=== PATIENT | male | born 1965 | race Caucasian/White ===

== ENCOUNTER 2019-06-11 19:13 | Emergency (ER) | payer MEDICARE, OTHER ==
--- NOTE | 2019-06-11 19:33 | UC ---
Respiratory Complaint HPI - HPI Summary HPI Summary: 54 yo male presents with sore throat and cough for the last 3 days. He tells me that about 3 days ago he developed a dry irritating cough that has persisted. 2 days ago developed a sore throat that seems to be getting worse. Today developed a fever. He has been taking OTC cold medicine for his symptoms with little relief. He does not smoke. Denies sinus symptoms, SOB, chest pain, rash, abdominal pain, n/v - History of Current Complaint Stated Complaint: COUGH Time Seen by Provider: 06/11/19 19:32 Hx Obtained From: Patient Onset/Duration: Gradual Onset Severity Initially: Mild Severity Currently: Moderate Pain Intensity: 6 Pain Scale Used: 0-10 Numeric Character: Cough: Nonproductive - Allergies/Home Medications Allergies/Adverse Reactions: Allergies Allergy/AdvReac Type Severity Reaction Status Date / Time atorvastatin [From Lipitor] Allergy Muscle Ache Verified 06/11/19 19:35 Home Medications: Home Medications Acetaminophen [Tylenol Extra Strength] 1,000 mg PO Q6H PRN 06/11/19 [History Confirmed 06/11/19] Acetaminophen/Dextromethorphan [Cold & Cough Daytime 1000-30 mg/30Ml] 1 liq PO ONCE 06/11/19 [History Confirmed 06/11/19] Diphenhydra/Phenyleph/Acetamin [Theraflu Severe Cold & Co 25-10-650 mg] 1 pow PO BEDTIME 06/11/19 [History Confirmed 06/11/19] Gabapentin 600 mg PO BID 06/11/19 [History Confirmed 06/11/19] Meloxicam [Mobic] 15 mg PO DAILY 06/11/19 [History Confirmed 06/11/19] Metformin HCl [Metformin HCl ER] 500 mg PO DAILY 06/11/19 [History Confirmed 01/25] Pantoprazole TAB * [Protonix TAB*] 40 mg PO DAILY 06/11/19 [History Confirmed ] Valsartan/HCTZ 160/12.5(NF) [Diovan HCT 160/12.5 (NF)] 1 tab PO DAILY 06/11/19 [ History Confirmed 06/11/19] Zolpidem Tartrate [Ambien] 10 mg PO BEDTIME 06/11/19 [History Confirmed 06/11/19 ] hydrOXYzine HCL TAB* [Atarax 10 MG TAB*] 10 mg PO TID PRN 06/11/19 [History Confirmed 06/11/19] PMH/Surg Hx/FS Hx/Imm Hx Endocrine History: Diabetes Cardiovascular History: Hypertension GI/ History: Gastroesophageal Reflux - Family History Known Family History: Positive: Hypertension, Diabetes - Social History Occupation: Employed Full-time Lives: With Family Alcohol Use: Occasionally Substance Use Type: None Smoking Status (MU): Never Smoked Tobacco Review of Systems All Other Systems Reviewed And Are Negative: Yes Constitutional: Positive: Fever Skin: Positive: Negative Eyes: Positive: Negative ENT: Positive: Sore Throat, Ear Ache Respiratory: Positive: Cough Cardiovascular: Positive: Negative Gastrointestinal: Positive: Negative Neurovascular: Positive: Negative Neurological: Positive: Negative Psychological: Positive: Negative Physical Exam - Summary Physical Exam Summary: GENERAL: NAD. WDWN. No pain distress. SKIN: No rashes, sores, lesions, or open wounds. HEENT: Head: AT/NC Eyes: Conjunctiva clear without inflammation or discharge. Ears: Hearing grossly normal. TMs intact, no bulging, erythema, or edema. Nose: Nasal mucosa pink and moist. NTTP maxillary and frontal sinus. Throat: Posterior oropharynx mild erythema and 2+ tonsillar enlargement. Mild white/yellow exudates. Uvula midline. No hoarse voice or muffled voice. NECK: Supple. Mild TTP tonsillar LAB L>R CHEST: CTAB. No r/r/w. No accessory muscle use. Breathing comfortably and in no distress. CV: RRR. Without m/r/g. Pulses intact. Cap refill <2seconds NEURO: Alert. PSYCH: Age appropriate behavior. Triage Information Reviewed: Yes Vital Signs: Vital Signs: Temp Pulse Resp BP Pulse Ox 100.9 F 105 24 122/85 98 06/11/19 19:43 06/11/19 19:43 06/11/19 19:43 06/11/19 19:43 06/11/19 19:43 Laboratory Tests 06/11/19 20:02 Group A Strep Rapid Positive A Vital Signs Reviewed: Yes Respiratory Course/Dx - Course Course Of Treatment: POC strep positive. CXR: wet read negative for pna. Will treat with amoxicillin and rx for tessalon for his cough. - Differential Dx/Diagnosis Provider Diagnosis: Strep pharyngitis Discharge - Sign-Out/Discharge Documenting (check all that apply): Patient Departure All imaging exams completed and their final reports reviewed: No - Discharge Plan Condition: Stable Disposition: HOME Prescriptions: Amoxicillin PO (*) [Amoxicillin 500 MG CAP*] 500 mg PO Q12H #20 cap Benzonatate CAP* [Tessalon 100 MG CAP*] 100 mg PO TID PRN #21 cap PRN Reason: Cough Patient Education Materials: Strep Throat (ED), Acute Bronchitis (ED) Referrals: Mo Young DO [Primary Care Provider] - Additional Instructions: If you develop a fever, shortness of breath, chest pain, new or worsening symptoms - please call your PCP or go to the ED immediately. - Billing Disposition and Condition Condition: STABLE Disposition: Home
[2019-06-11 19:48] VITALS: BP 122/85
[2019-06-11] MEDS ORDERED: Amoxicillin PO (*) 500 MG CAP PO ONE (20:09)
--- NOTE | 2019-06-12 09:58 | UC ---
- Progress Note Progress Note: CXR report reading from radiologist: IMPRESSION: No acute cardiopulmonary process by chest radiograph. No change in treatment plan. Course/Dx - Diagnoses Provider Diagnoses: Strep pharyngitis Discharge - Sign-Out/Discharge Documenting (check all that apply): Post-Discharge Follow Up All imaging exams completed and their final reports reviewed: Yes - Discharge Plan Condition: Stable Disposition: HOME Prescriptions: Amoxicillin PO (*) [Amoxicillin 500 MG CAP*] 500 mg PO Q12H #20 cap Benzonatate CAP* [Tessalon 100 MG CAP*] 100 mg PO TID PRN #21 cap PRN Reason: Cough Patient Education Materials: Strep Throat (ED), Acute Bronchitis (ED) Referrals: Mo Young DO [Primary Care Provider] - Additional Instructions: If you develop a fever, shortness of breath, chest pain, new or worsening symptoms - please call your PCP or go to the ED immediately. - Billing Disposition and Condition Condition: STABLE Disposition: Home
== END 2019-06-11 20:17 | disposition home or self-care (01) ==
LOC: UCCORT 19:13
DX: J02.0 Streptococcal pharyngitis (principal); R05 Cough; E11.9 Type 2 diabetes mellitus without complications; Z79.84 Long term (current) use of oral hypoglycemic drugs; I10 Essential (primary) hypertension; K21.9 Gastro-esophageal reflux disease without esophagitis
CPT/HCPCS: 71046; 87651; 99212; A9270-GY; G0463

== ENCOUNTER 2019-10-21 18:06 | Emergency (ER) | payer MEDICARE, OTHER ==
[2019-10-21 18:42] VITALS: BP 127/87
--- NOTE | 2019-10-21 18:51 | UC ---
Throat Pain/Nasal [place]nn HPI - HPI Summary HPI Summary: Patient's presents to urgent care reporting 4-5 days of progressive discomfort in the sinuses. Patient states he feels like it's between his eyes with pressure behind his eyes. No documented fevers but states she's felt warm. Patient without chills. Patient has used Flonase a couple times as well as taken Tylenol with relief. Patient states he feels much better following hot showers. Patient without any runny nose sore throat ear pain. Patient without any chest pain shortness of breath abdominal pain. Patient history of sinus infections and states this feels similar. Patient is a diabetic but has improved his A1c with dietary changes and is not currently on medication. Patient's medications as in the EMR by triage nurse were reviewed. - History of Current Complaint Chief Complaint: UCRespiratory Stated Complaint: SINUS Time Seen by Provider: 10/21/19 18:51 Hx Obtained From: Patient Severity: Moderate Pain Intensity: 7 Pain Scale Used: 0-10 Numeric - Allergies/Home Medications Allergies/Adverse Reactions: Allergies Allergy/AdvReac Type Severity Reaction Status Date / Time atorvastatin [From Lipitor] Allergy Muscle Ache Verified 10/21/19 18:37 PMH/Surg Hx/FS Hx/Imm Hx Previously Healthy: Yes Endocrine History: Diabetes, Dyslipidemia Cardiovascular History: Hypertension - Surgical History Surgical History: Yes Surgery Procedure, Year, and Place: back sx with hardware. left rotator cuff. orbital fx repair. hernia - Family History Known Family History: Positive: Hypertension, Diabetes, Non-Contributory - Social History Lives: With Family Alcohol Use: Occasionally Substance Use Type: None Smoking Status (MU): Never Smoked Tobacco When Did the Patient Quit Smoking/Using Tobacco: 1989 Review of Systems All Other Systems Reviewed And Are Negative: Yes Constitutional: Positive: Fatigue Skin: Positive: Negative Eyes: Positive: Negative ENT: Positive: Sinus Congestion - pressure between and behind eyes. Negative: Sore Throat, Ear Ache, Nasal Discharge Respiratory: Positive: Negative Cardiovascular: Positive: Negative Physical Exam - Summary Physical Exam Summary: Vital Signs Reviewed: Yes A+Ox3, no distress Eyes: Conjunctiva Clear, BRITTNEY. EOM intact and full, no photophobia ENT: Hearing grossly normal TM x 2 clear, turbinates mild inflammed, + TTP frontal sinuses, mmoist, uvula midline, no exudate, no erythema Neck: Positive: Supple Respiratory: Positive: No respiratory distress, No accessory muscle use + CTA throughout no w/r Cardiovascular: RRR nl s1, s2 no m/r CBT <2 sec abd soft + BS nt/nd no guarding, no distension Musculoskeletal Exam: SMITH x 4 without difficulty Strength Intact, ROM Intact Neurological: Positive: Alert, + sensation throughout Psychological: Positive: Normal Response To examiner Skin: Positive: no rash, no ecchymosis Triage Information Reviewed: Yes Vital Signs: Initial Vital Signs Temp 97.8 F 10/21/19 18:36 Pulse 71 10/21/19 18:36 Resp 16 10/21/19 18:36 BP 127/87 10/21/19 18:36 Pulse Ox 100 10/21/19 18:36 Throat Pain/Nasal Course/Dx - Course Course Of Treatment: Patient presents to urgent care with 3-4 days of progressive frontal fullness high pressure and fatigue. Patient tactile temperatures. Patient taking Flonase and Tylenol short-term relief. Patient is borderline diabetic. Patient states he's had sinus infections before and this feels similar. On exam vital signs are stable. Patient with mild blood pressure recommended follow up PCP. Patient does have discomfort along his frontal sinuses. Mild inflammation of the extremities. Otherwise non-concerning exam. Discussed with patient. Given continue Flonase. Antibiotics. Secretion precaution. Return precaution. Patient comfortable with plan. - Differential Dx/Diagnosis Provider Diagnosis: Sinusitis Discharge ED - Sign-Out/Discharge Documenting (check all that apply): Patient Departure All imaging exams completed and their final reports reviewed: No Studies - Discharge Plan Condition: Stable Disposition: HOME Prescriptions: Amoxicillin/Clavulanate TAB* [Augmentin TAB 875*] 875 mg PO BID #20 tab Patient Education Materials: Sinusitis (ED) Referrals: Mo Young DO [Primary Care Provider] - Additional Instructions: - Stay well hydrated. Drink plenty of non-alcoholic, non-caffinated beverages. - Okay to take Tylenol evry 6-8 hours for for pain or fever. Take with food. Do NOT take for more than 4-5 days. - These infections are spread by secretions - do NOT share eating or drinking utensils - clean items you share with other people such as cell phones, computer mouse, TV remote, computer tablets,etc. Once you have been antibiotics for 2 days, change your toothbrush and your pillowcase. - take antibiotics as prescribed until gone - get plenty of restful sleep - humidify the air in the room where you sleep - boil water, run a hot steam shower, vaporizer, cups of water by heat register - okay to take over the counter decongestant and cough medication - use nasal spray daily - if your symptoms worsen - increased pain ,fever, vision changes or any other concerns it is recommended you contact your doctor or go to the emergency department for further evaluation - Billing Disposition and Condition Condition: STABLE Disposition: Home
== END 2019-10-21 19:10 | disposition home or self-care (01) ==
LOC: UCCORT 18:06
DX: J32.9 Chronic sinusitis, unspecified (principal); E11.9 Type 2 diabetes mellitus without complications; I10 Essential (primary) hypertension; Z88.8 Allergy status to other drugs, medicaments and biological substances
CPT/HCPCS: 99212; G0463